=== PATIENT | female | born 1975 | race Caucasian/White ===

== ENCOUNTER 2024-01-18 07:02 | Inpatient (IN) | payer MEDICARE, MEDICAID ==
[2024-01-18] VITALS (36 sets, daily range): BP systolic 100–153; BP diastolic 66–101; PULSE 85–135; RESP 17–33; TEMP 97.8–98.6; O2SAT 92–100
[~2024-01-18] VITALS: Ht 142.2 cm; Wt 69.9 kg
[~2024-01-18 07:02] MED LIST: ACETAMINOPHEN325 M1 PO; ADVAIR 250-501 EACH INH; AMOX TR-K CLV1 EAC2 PO; ATORVASTATIN CA40 MG; BACTRIM DS TAB1 EACH PO; BENADRYL PO; BENZONATATE100 MG PO; BIKTARVY 50-201 EACH PO; Benzonatate PO; CELECOXIB200 MG; CITALOPRAM HBR40 MG PO; CRESTOR10 MG PO; DALIRESP500 MCG PO; DIFLUCAN100 MG PO; DOXYCYCLINE HY100 MG PO; FENOFIBRATE145 M1 PO; FOLIC ACID0.4 MG PO; FUROSEMIDE10 MG/1 M1 IV; GLIPIZIDE ER5 MG PO; HYDROCODON-ACE1 EA11 PO; IPRAT-ALBUT 0.5-3 ML; JARDIANCE25 MG PO; LEVALBUTER1.25 MG/3 INH; LEVOFLOXACIN250 MG PO; LIDOCAINE PO; LOPRESSOR25 MG; LORATADINE10 MG PO; LOSARTAN-HCTZ1 EAC2 PO; Levofloxacin PO; MAALOX PO; MEDROL4 M2 PO; METFORMIN HCL1000 MG; METFORMIN HCL500 M1 PO; METHYLPREDNISOLO4 M1; METOPROLOL TART25 MG PO; MONTELUKAST SOD10 MG PO; MOUNJARO5 MG/0.5 M; NYST PO; OMEPRAZOLE20 MG PO; ONDANSETRON ODT4 MG; PREDNISONE10 MG PO; PREDNISONE20 MG PO; PREZCOBIX 8001 EACH PO; PROTONIX20 MG PO; PROVENTIL HFA6.7 GM INH; RISPERIDONE4 MG PO; ROFLUMILAST500 MCG; TEMAZEPAM15 MG PO; TIVICAY50 MG PO; TRAZODONE HCL100 MG PO; TRELEGY ELLIPT1 EAC1; TRESIBA FL100 UNIT/1; ULTRAM 50MG50 MG PO; VENTOLIN HFA18 GM INH
[2024-01-18] MEDS ORDERED: ALBUTEROL/IPRATROPIUM 3 ML NEB ONE ×2 (07:24→07:31)
[2024-01-18] MEDS ORDERED: METHYLPREDNISOLONE SOD SUCC 125 MG/2ML VIAL ONE (07:24)
[2024-01-18 07:29] LABS: BASOPHILS % 0.1 % (0.0-1.0); EOSINOPHILS # (AUTO) 0.1 (0.0-0.4); EOSINOPHILS % 0.9 % (0.0-6.0); HEMATOCRIT 34.9 % (34.2-44.1); HEMOGLOBIN 9.3 g/dL (12.0-16.0); LYMPHOCYTES % 13.8 % (18.0-39.1); MEAN CORPUSCULAR HEMOGLOBIN 24.6 pg (28-32); MEAN CORPUSCULAR HGB CONC 26.6 g/dL (31-35); MEAN CORPUSCULAR VOLUME 92.3 fL (81-99); MONOCYTES # (AUTO) 0.8 (0.2-0.8); MONOCYTES % 11.5 % (4.4-11.3); NEUTROPHILS # (AUTO) 5.2 (2.1-6.9); PLATELET COUNT 290 x10e3/uL (140-360); RED BLOOD COUNT 3.78 x10e6/uL (3.6-5.1); RED CELL DISTRIBUTION WIDTH 19.9 % (11.7-14.4); WHITE BLOOD COUNT 7.05 x10e3/uL (4.8-10.8)
[2024-01-18 07:50] LABS: CREATINE KINASE 22 IU/L (29-168)
[2024-01-18 07:51] LABS: INR 0.86; PROTHROMBIN TIME 12.4 seconds (11.9-14.5)
[2024-01-18 07:52] LABS: PARTIAL THROMBOPLASTIN TIME 26.9 seconds (23.8-35.5)
[2024-01-18] MEDS: METHYLPREDNISOLONE SOD SUCC 125 MG/2ML VIAL IV ONE (08:09)
[2024-01-18 08:10] LABS: TROPONIN I < 0.001 ng/mL (0-0.300)
[2024-01-18] MEDS: ALBUTEROL SULF 0.083% NEB SOLN 3 ML NEB NEB STA ×2 (08:10→09:11)
[2024-01-18 08:27] LABS: ALANINE AMINOTRANSFERASE 17 IU/L (0-55); ALBUMIN 3.3 g/dL (3.5-5.0); ALBUMIN/GLOBULIN RATIO 0.9 (0.8-2.0); ALKALINE PHOSPHATASE 80 IU/L (40-150); BILIRUBIN,TOTAL 0.3 mg/dL (0.2-1.2); BLOOD UREA NITROGEN < 5 mg/dL (7-26); CALCIUM 9.5 mg/dL (8.4-10.2); CHLORIDE 88 mmol/L (98-107); CREATININE, SERUM 0.53 mg/dL (0.57-1.11); EST GLOMERULAR FILTRATION RATE 113 ML/MIN (>=60); GLUCOSE 169 mg/dL (74-118); SODIUM 144 mmol/L (136-145); TOTAL PROTEIN 7.1 g/dL (6.5-8.1)
[2024-01-18 08:35] LABS: BUN/CREATININE RATIO 9 (6-25)
[2024-01-18 08:46] LABS: CARBON DIOXIDE 42 mmol/L (22-29)
[2024-01-18] MEDS: ALBUTEROL/IPRATROPIUM 3 ML NEB NEB ONE (09:12)
[2024-01-18] MEDS ORDERED: CEFEPIME 2 GM in SODIUM CHLORIDE 0.9% 100 ML IV ONE (09:30)
[2024-01-18] MEDS ORDERED: BENZONATATE 100 MG CAP PO PRN (11:00)
[2024-01-18] MEDS ORDERED: DEXTROSE 50% SYRINGE 50 ML IV PRN (11:15)
[2024-01-18] MEDS: SODIUM CHLORIDE 0.9% 1000ML 1,000 ML IV SCH (11:18)
[2024-01-18] MEDS: Vancomycin IV 1 GM in SODIUM CHLORIDE 0.9% 250ML 250 ML IV ONE (11:19)
[2024-01-18] MEDS: INSULIN REGULAR, HUMAN 100 UNIT/1 ML SQ SCH (11:30)
[2024-01-18] MEDS: ALBUTEROL/IPRATROPIUM 3 ML NEB INH SCH (13:00)
[2024-01-18] MEDS: LEVOFLOXACIN 750MG/D5W 150ML 150 ML IV ONE (13:11)
[2024-01-18] MEDS: ACETAMINOPHEN 325 MG TAB PO PRN (16:07)
[2024-01-18] MEDS: MONTELUKAST SODIUM 10 MG TAB PO SCH (20:04)
[2024-01-18] MEDS: HYDROCODONE/APAP 7.5MG-325MG 1 EA TAB PO PRN (20:34)
[2024-01-18] MEDS: SODIUM CHLORIDE 0.9% 1000ML 1,000 ML IV ONE (23:02)
[2024-01-19] VITALS (37 sets, daily range): BP systolic 116–158; BP diastolic 75–130; PULSE 79–123; RESP 16–30; TEMP 98–98.7; O2SAT 88–100
[2024-01-19] MEDS: METOPROLOL TARTRATE 50 MG TAB PO ONE (05:20)
[2024-01-19 05:46] LABS: BASOPHILS % 0.2 % (0.0-1.0); EOSINOPHILS # (AUTO) 0.1 (0.0-0.4); EOSINOPHILS % 1.9 % (0.0-6.0); HEMATOCRIT 30.5 % (34.2-44.1); HEMOGLOBIN 8.3 g/dL (12.0-16.0); LYMPHOCYTES % 16.8 % (18.0-39.1); MEAN CORPUSCULAR HEMOGLOBIN 24.9 pg (28-32); MEAN CORPUSCULAR HGB CONC 27.2 g/dL (31-35); MEAN CORPUSCULAR VOLUME 91.3 fL (81-99); MONOCYTES # (AUTO) 0.7 (0.2-0.8); MONOCYTES % 12.3 % (4.4-11.3); NEUTROPHILS % 67.8 % (38.7-80.0); PLATELET COUNT 235 x10e3/uL (140-360); RED BLOOD COUNT 3.34 x10e6/uL (3.6-5.1); RED CELL DISTRIBUTION WIDTH 19.5 % (11.7-14.4); WHITE BLOOD COUNT 5.84 x10e3/uL (4.8-10.8)
[2024-01-19 06:06] LABS: ANION GAP 12.1 mmol/L (8-16); BLOOD UREA NITROGEN < 5 mg/dL (7-26); CALCIUM 8.4 mg/dL (8.4-10.2); CARBON DIOXIDE 37 mmol/L (22-29); CHLORIDE 96 mmol/L (98-107); CREATININE, SERUM 0.44 mg/dL (0.57-1.11); EST GLOMERULAR FILTRATION RATE 118 ML/MIN (>=60); GLUCOSE 99 mg/dL (74-118); SODIUM 142 mmol/L (136-145)
[2024-01-19 06:07] LABS: POTASSIUM 3.1 mmol/L (3.5-5.1)
[2024-01-19 06:08] LABS: BUN/CREATININE RATIO 11 (6-25); PHOSPHORUS 2.5 MG/DL (2.3-4.7)
[2024-01-19 06:10] LABS: MAGNESIUM 1.1 MG/DL (1.3-2.1)
[2024-01-19] MEDS: MAGNESIUM SULFATE 2GM/50ML 50 ML IV ONE ×2 (06:28→08:39)
[2024-01-19] MEDS: POTASSIUM CHLORIDE 20 MEQ TAB CR PO ONE (06:28)
[2024-01-19] MEDS: METHYLPREDNISOLONE SOD SUCC 40 MG/ML VIAL 1ML IV SCH (08:39)
[2024-01-19] MEDS: PANTOPRAZOLE SOD 40 MG TABEC PO SCH (08:39)
[2024-01-19] MEDS: MAGNESIUM OXIDE 400 MG TAB PO SCH (08:39)
[2024-01-19 09:22] LABS: % IRON SATURATION 10 % (15-50); IRON 29 ug/dL (50-170); TOTAL IRON BINDING CAPACITY 293 ug/dL (261-478); TRANSFERRIN 209 mg/dL (180-382)
[2024-01-19 09:36] LABS: FOLATE 18.3 ng/mL (7.0-15.4)
[2024-01-19] MEDS: SOD CHL 0.45%/POT CHL 20MEQ 1,000 ML IV SCH (09:57)
[2024-01-19] MEDS: POTASSIUM PHOSPHATE 15 MM in SODIUM CHLORIDE 0.9% 250ML 250 ML IV ONE (09:58)
[2024-01-19] MEDS: ENOXAPARIN 30 MG/0.3 ML SYR SC SCH (17:03)
[2024-01-19] MEDS: METOPROLOL TARTRATE 50 MG TAB PO SCH (17:04)
[2024-01-20] VITALS (24 sets, daily range): BP systolic 108–148; BP diastolic 60–101; PULSE 42–106; RESP 18–32; TEMP 98.4–98.9; O2SAT 90–99
[2024-01-20 06:47] LABS: EOSINOPHILS % 0.6 % (0.0-6.0); HEMATOCRIT 31.6 % (34.2-44.1); HEMOGLOBIN 8.4 g/dL (12.0-16.0); LYMPHOCYTES % 18.5 % (18.0-39.1); MEAN CORPUSCULAR HEMOGLOBIN 24.3 pg (28-32); MEAN CORPUSCULAR HGB CONC 26.6 g/dL (31-35); MEAN CORPUSCULAR VOLUME 91.6 fL (81-99); MONOCYTES # (AUTO) 0.6 (0.2-0.8); MONOCYTES % 10.7 % (4.4-11.3); NEUTROPHILS # (AUTO) 3.8 (2.1-6.9); NEUTROPHILS % 69.5 % (38.7-80.0); PLATELET COUNT 262 x10e3/uL (140-360); RED BLOOD COUNT 3.45 x10e6/uL (3.6-5.1); RED CELL DISTRIBUTION WIDTH 19.5 % (11.7-14.4); WHITE BLOOD COUNT 5.41 x10e3/uL (4.8-10.8)
[2024-01-20 06:52] LABS: ANION GAP 11.9 mmol/L (8-16); BLOOD UREA NITROGEN < 5 mg/dL (7-26); CARBON DIOXIDE 36 mmol/L (22-29); CHLORIDE 100 mmol/L (98-107); CREATININE, SERUM 0.45 mg/dL (0.57-1.11); EST GLOMERULAR FILTRATION RATE 117 ML/MIN (>=60); GLUCOSE 95 mg/dL (74-118); POTASSIUM 4.9 mmol/L (3.5-5.1); SODIUM 143 mmol/L (136-145)
[2024-01-20 06:54] LABS: MAGNESIUM 1.6 MG/DL (1.3-2.1); PHOSPHORUS 3.3 MG/DL (2.3-4.7)
[2024-01-20 07:06] LABS: BUN/CREATININE RATIO 11 (6-25)
[2024-01-20] MEDS ORDERED: MAGNESIUM SULFATE 2GM/50ML IV ONE (09:00)
[2024-01-20] MEDS: MAGNESIUM SULFATE 2GM/50ML 50 ML IV ONE (09:44)
[2024-01-21] VITALS (14 sets, daily range): BP systolic 111–154; BP diastolic 78–96; PULSE 60–116; RESP 16–22; TEMP 97.8–98.8; O2SAT 92–100
[2024-01-21 07:34] LABS: ANION GAP 16.6 mmol/L (8-16); CALCIUM 9.4 mg/dL (8.4-10.2); CREATININE, SERUM 0.49 mg/dL (0.57-1.11); POTASSIUM 4.6 mmol/L (3.5-5.1)
[2024-01-21] MEDS ORDERED: LIDOCAINE HCL-PF 4% 40 MG/1 ML 5ML AMP ONE (08:30)
[2024-01-21] MEDS ORDERED: LIDOCAINE HCL 4% 50 ML BTL ONE (08:31)
[2024-01-21] MEDS ORDERED: MAGNESIUM SULFATE 2GM/50ML IV ONE (09:00)
[2024-01-21] MEDS ORDERED: FENTANYL CITRATE/PF 100MCG/2 ML INJ ONE (09:55)
[2024-01-21] MEDS ORDERED: DEXAMETHASONE SOD PHOS INJ 4 MG/ML SDV ONE (10:36)
[2024-01-21] MEDS ORDERED: SEVOFLURANE INHAL SOLN 250 ML PEN BTL ONE (10:36)
[2024-01-21] MEDS ORDERED: PROPOFOL IV EMULSION 10 MG/ML 20 ML VIAL ONE (10:36)
[2024-01-21] MEDS ORDERED: LIDOCAINE HCL 2% LOCAL INJ 5 ML SDV VIAL INJ ONE (10:36)
[2024-01-21] MEDS ORDERED: FAMOTIDINE 20 MG/2 ML VIAL IV ONE (10:36)
[2024-01-21] MEDS ORDERED: ONDANSETRON HCL INJ 2MG/ML 2ML 2 MG/ML VIAL ONE (10:36)
[2024-01-21] MEDS ORDERED: NALOXONE HCL INJ 0.4 MG/ML AMP ONE (10:36)
[2024-01-21] MEDS: MAGNESIUM SULFATE 2GM/50ML 50 ML IV ONE (10:39)
[2024-01-21] MEDS: ALBUTEROL/IPRATROPIUM 3 ML NEB ONE (19:11)
[2024-01-22] VITALS (11 sets, daily range): BP systolic 106–148; BP diastolic 72–97; PULSE 77–98; RESP 16–22; TEMP 98.4–99.4; O2SAT 93–100
[2024-01-23] VITALS (10 sets, daily range): BP systolic 127–161; BP diastolic 83–93; PULSE 82–108; RESP 17–21; TEMP 98.1–99.4; O2SAT 95–100
[2024-01-23] MEDS ORDERED: METOPROLOL TARTRATE INJ 1 MG/ML VIAL IV PRN (07:30)
[2024-01-23] MEDS ORDERED: BROVANA15 MCG/2 M NEB (14:22)
[2024-01-23] MEDS ORDERED: TIVICAY50 MG PO (14:22)
[2024-01-23] MEDS ORDERED: LASIX20 MG PO (14:22)
[2024-01-23] MEDS ORDERED: MOUNJARO10 MG/0.5 SC (14:22)
[2024-01-23] MEDS ORDERED: TRESIBA100 UNIT/1 SQ (14:22)
[2024-01-23] MEDS ORDERED: HYDROCODON-ACE1 EA12 PO (14:22)
[2024-01-23] MEDS ORDERED: ZITHROMAX500 MG PO (14:48)
[2024-01-25 21:43] LABS: P.JIROVECI (CARINII) DFA Negative (Negative)
== END 2024-01-23 16:23 | disposition home or self-care (01) | DRG 190 ==
LOC: ER 07:27 → ERHOLD 09:46 → MERGE 09:46 → ICU 10:53 → MED/SURG2 01-20 23:42
PROVIDERS: ADMIT Internal Medicine; ATTEND Internal Medicine
PROC: 0B918ZZ Drainage of Trachea, Via Natural or Artificial Opening Endoscopic (ICD-10-PCS; 2024-01-21)
PROC: 0B9G8ZX Drainage of Left Upper Lung Lobe, Via Natural or Artificial Opening Endoscopic, Diagnostic (ICD-10-PCS; principal; 2024-01-21 09:00)
DX: J44.1 Chronic obstructive pulmonary disease with (acute) exacerbation (principal); J18.9 Pneumonia, unspecified organism; J96.01 Acute respiratory failure with hypoxia; I27.0 Primary pulmonary hypertension; J90 Pleural effusion, not elsewhere classified; I47.10 Supraventricular tachycardia, unspecified; J98.19 Other pulmonary collapse; J44.0 Chronic obstructive pulmonary disease with (acute) lower respiratory infection; Z99.81 Dependence on supplemental oxygen; I50.9 Heart failure, unspecified; E78.5 Hyperlipidemia, unspecified; E11.9 Type 2 diabetes mellitus without complications; M80.00XD Age-related osteoporosis with current pathological fracture, unspecified site, subsequent encounter for fracture with routine healing; D64.9 Anemia, unspecified; K21.9 Gastro-esophageal reflux disease without esophagitis; Z21 Asymptomatic human immunodeficiency virus [HIV] infection status; M54.9 Dorsalgia, unspecified; E66.9 Obesity, unspecified; Z68.34 Body mass index [BMI] 34.0-34.9, adult; Z79.84 Long term (current) use of oral hypoglycemic drugs; Z79.85 Long-term (current) use of injectable non-insulin antidiabetic drugs; Z79.899 Other long term (current) drug therapy; Z88.1 Allergy status to other antibiotic agents; Z87.891 Personal history of nicotine dependence; Z83.3 Family history of diabetes mellitus; Z82.49 Family history of ischemic heart disease and other diseases of the circulatory system
CPT/HCPCS: 31622; 36415; 71045; 71046; 71250; 80048; 80053; 82550; 82607; 82746; 82948; 83036; 83540; 83605; 83735; 83880; 84100; 84466; 84484; 85025; 85610; 85730; 87015; 87102; 87116; 87205; 87206; 87335; 93005; 94799; 96372; 99252; 99285; J1100; J1650; J2001; J2310; J2405; J2919; J3475; J7030; J7050; U0002

== ENCOUNTER 2024-01-25 09:11 | Emergency (ER) | payer MEDICARE, MEDICAID ==
[~2024-01-25] VITALS: Ht 142.2 cm; Wt 69.9 kg
[~2024-01-25 09:11] MED LIST changes: +BROVANA15 MCG/2 M NEB; +HYDROCODON-ACE1 EA12 PO; +LASIX20 MG PO; +MOUNJARO10 MG/0.5 SC; +TRESIBA100 UNIT/1 SQ; +ZITHROMAX500 MG PO
[2024-01-25 09:21] VITALS: TEMP 98.6
[2024-01-25 09:38] LABS: ABG PH 7.43 (7.35-7.45)
[2024-01-25 09:39] LABS: ABG HCO3 41 mmol/L (22-26); ABG PCO2 62 mmHg (35-45); ABG PO2 66 mmHg (80-105); ABG TCO2 43
[2024-01-25] MEDS ORDERED: NALOXONE HCL INJ 0.4 MG/ML AMP IV ONE (09:45)
[2024-01-25 10:08] LABS: EOSINOPHILS % 0.4 % (0.0-6.0); HEMATOCRIT 31.4 % (34.2-44.1); HEMOGLOBIN 8.7 g/dL (12.0-16.0); LYMPHOCYTES # (AUTO) 1.1 (1.0-3.2); LYMPHOCYTES % 13.8 % (18.0-39.1); MEAN CORPUSCULAR HEMOGLOBIN 24.6 pg (28-32); MEAN CORPUSCULAR HGB CONC 27.7 g/dL (31-35); MONOCYTES # (AUTO) 0.8 (0.2-0.8); MONOCYTES % 10.3 % (4.4-11.3); NEUTROPHILS # (AUTO) 5.7 (2.1-6.9); NEUTROPHILS % 74.8 % (38.7-80.0); PLATELET COUNT 264 x10e3/uL (140-360); RED BLOOD COUNT 3.53 x10e6/uL (3.6-5.1); RED CELL DISTRIBUTION WIDTH 19.2 % (11.7-14.4); WHITE BLOOD COUNT 7.66 x10e3/uL (4.8-10.8)
[2024-01-25 10:32] LABS: ACETAMINOPHEN < 3.0 ug/mL (10-30); ETHANOL < 10.0 mg/dL (0.0-10.0); SALICYLATE < 5.0 mg/dL (0-30)
[2024-01-25 10:34] LABS: ALANINE AMINOTRANSFERASE 14 IU/L (0-55); ALBUMIN 3.1 g/dL (3.5-5.0); ALBUMIN/GLOBULIN RATIO 0.8 (0.8-2.0); ALKALINE PHOSPHATASE 91 IU/L (40-150); ANION GAP 21.9 mmol/L (8-16); BILIRUBIN,TOTAL 0.3 mg/dL (0.2-1.2); BLOOD UREA NITROGEN 7 mg/dL (7-26); BUN/CREATININE RATIO 15 (6-25); CALCIUM 9.3 mg/dL (8.4-10.2); CARBON DIOXIDE 31 mmol/L (22-29); CHLORIDE 92 mmol/L (98-107); CREATINE KINASE 20 IU/L (29-168); CREATININE, SERUM 0.48 mg/dL (0.57-1.11); EST GLOMERULAR FILTRATION RATE 115 ML/MIN (>=60); GLUCOSE 133 mg/dL (74-118); MAGNESIUM 1.4 MG/DL (1.3-2.1); POTASSIUM 3.9 mmol/L (3.5-5.1); SODIUM 141 mmol/L (136-145)
[2024-01-25 10:44] VITALS: PULSE 92; RESP 18; O2SAT 96
[2024-01-25] MEDS: ALBUTEROL/IPRATROPIUM 3 ML NEB NEB ONE (10:45)
[2024-01-25 10:48] LABS: TROPONIN I < 0.001 ng/mL (0-0.300)
[2024-01-25] MEDS: METHYLPREDNISOLONE SOD SUCC 125 MG/2ML VIAL IV STA (10:50)
[2024-01-25 10:51] LABS: INFLUENZAE A&B ANTIGEN (RAPID) NEGATIVE (NEGATIVE)
[2024-01-25 10:52] LABS: RESPIRATORY SYNC. VIRUS NEGATIVE (NEGATIVE)
[2024-01-25] MEDS: SODIUM CHLORIDE 0.9% 1000ML 1,000 ML IV STA (10:53)
[2024-01-25 11:25] LABS: INR 0.92
[2024-01-25 11:26] LABS: PARTIAL THROMBOPLASTIN TIME 31.7 seconds (23.8-35.5)
[2024-01-25 11:43] LABS: CLARITY,URINE CLEAR (CLEAR); COLOR,URINE YELLOW (YELLOW); GLUCOSE, URINE 500 (NEGATIVE); LEUKOCYTE ESTERASE ,URINE NEGATIVE (NEGATIVE); NITRITE,URINE NEGATIVE (NEGATIVE); PH,URINE 7 (5 - 7); PROTEIN,URINE DIPSTICK NEGATIVE (NEGATIVE)
[2024-01-25 11:44] LABS: BILIRUBIN,URINE NEGATIVE (NEGATIVE); KETONES,URINE NEGATIVE (NEGATIVE); URINE UROBILINOGEN 0.2 mg/dL (0.2 - 1)
[2024-01-25 11:45] LABS: AMPHETAMINES SCREEN,URINE NEGATIVE (NEGATIVE); BENZODIAZEPINES SCREEN,URINE NEGATIVE (NEGATIVE); CANNABINOIDS SCREEN,URINE NEGATIVE (NEGATIVE); METHADONE SCREEN, URINE NEGATIVE (NEGATIVE); OPIATES SCREEN,URINE POSITIVE (NEGATIVE); PHENCYCLIDINE SCREEN,URINE NEGATIVE (NEGATIVE)
[2024-01-25 11:52] LABS: BACTERIA,URINE FEW /HPF; RBC,URINE 0-5 /HPF (0-5)
[2024-01-25 11:53] LABS: EPITHELIAL CELLS,URINE FEW /LPF
[2024-01-25] MEDS ORDERED: PREDNISONE20 MG PO (11:56)
[2024-01-25] MEDS ORDERED: ALBUTEROL0.63 MG/3 NEB (11:56)
[2024-01-25 12:02] VITALS: PULSE 99; RESP 22
[2024-01-25 12:16] VITALS: BP 116/75; PULSE 99; RESP 22; O2SAT 94
== END 2024-01-25 12:16 | disposition home or self-care (01) ==
LOC: MERGE 09:18 → ER 09:18
DX: R06.02 Shortness of breath (principal); J44.1 Chronic obstructive pulmonary disease with (acute) exacerbation; B20 Human immunodeficiency virus [HIV] disease; I10 Essential (primary) hypertension; E11.65 Type 2 diabetes mellitus with hyperglycemia; E78.5 Hyperlipidemia, unspecified; K21.9 Gastro-esophageal reflux disease without esophagitis; M54.9 Dorsalgia, unspecified; G89.29 Other chronic pain; Z11.52 Encounter for screening for COVID-19; F17.210 Nicotine dependence, cigarettes, uncomplicated
CPT/HCPCS: 36415; 70450; 71045; 80053; 80307; 80320; 80329 ×2; 81001; 82550; 82805; 83605; 83735; 83880; 84484; 85025; 85610; 85730; 87040; 87086; 87400; 87420; 93005; 94640; 94799; 99284; J2310; J2919; J7030; U0002

== ENCOUNTER 2024-02-06 15:21 | Emergency (ER) | payer MEDICARE, MEDICAID ==
[~2024-02-06] VITALS: Ht 152.4 cm; Wt 81.6 kg
[~2024-02-06 15:21] MED LIST changes: +ALBUTEROL0.63 MG/3 NEB
[2024-02-06 15:36] VITALS: TEMP 97.8
[2024-02-06 16:12] LABS: BASOPHILS % 0.2 % (0.0-1.0); EOSINOPHILS % 0.1 % (0.0-6.0); HEMATOCRIT 32.6 % (34.2-44.1); HEMOGLOBIN 9.2 g/dL (12.0-16.0); LYMPHOCYTES # (AUTO) 0.7 (1.0-3.2); LYMPHOCYTES % 5.7 % (18.0-39.1); MEAN CORPUSCULAR HEMOGLOBIN 24.2 pg (28-32); MEAN CORPUSCULAR HGB CONC 28.2 g/dL (31-35); MEAN CORPUSCULAR VOLUME 85.8 fL (81-99); MONOCYTES # (AUTO) 0.7 (0.2-0.8); PLATELET COUNT 364 x10e3/uL (140-360); WHITE BLOOD COUNT 12.02 x10e3/uL (4.8-10.8)
[2024-02-06] MEDS: DEXAMETHASONE SOD PHOS 10 MG/1 ML VIAL IV ONE (16:21)
[2024-02-06 16:24] LABS: ALBUMIN 4.1 g/dL (3.5-5.0); ALBUMIN/GLOBULIN RATIO 1.1 (0.8-2.0); ANION GAP 18.2 mmol/L (8-16); BILIRUBIN,TOTAL 0.3 mg/dL (0.2-1.2); CALCIUM 9.1 mg/dL (8.4-10.2); CREATININE, SERUM 0.74 mg/dL (0.57-1.11); TOTAL PROTEIN 7.8 g/dL (6.5-8.1)
[2024-02-06 16:25] LABS: POTASSIUM 5.2 mmol/L (3.5-5.1)
[2024-02-06 16:26] VITALS: PULSE 110; RESP 18; O2SAT 96
[2024-02-06 16:27] VITALS: PULSE 110; RESP 18
[2024-02-06] MEDS: ALBUTEROL SULF 0.083% NEB SOLN 3 ML NEB NEB STA (16:27)
[2024-02-06] MEDS: IPRATROPIUM BROMIDE 0.02% 2.5 ML NEB NEB ONE (16:27)
[2024-02-06 16:40] VITALS: PULSE 100; RESP 28; O2SAT 100
== END 2024-02-06 18:05 | disposition home or self-care (01) ==
LOC: ER 15:31
DX: R06.02 Shortness of breath (principal); J44.9 Chronic obstructive pulmonary disease, unspecified; R55 Syncope and collapse; R94.31 Abnormal electrocardiogram [ECG] [EKG]
CPT/HCPCS: 36415; 71045; 80053; 83880; 85025; 93005; 94640; 94799; 99284; J1100